=== PATIENT | female | born 1950 | race Hispanic/Latino ===

== ENCOUNTER 2025-03-02 17:55 | Emergency (ER) | payer MEDICARE, BC ==
[2025-03-02] MEDS ORDERED: predniSONE 20 MG TAB ONE (19:03)
== END 2025-03-02 20:33 | disposition home or self-care (01) ==
LOC: BURERS 17:55
DX: J01.90 Acute sinusitis, unspecified (principal); I10 Essential (primary) hypertension
CPT/HCPCS: 87081; 87428; 87430; J0692; 96372; 99283; J7512